=== PATIENT | male | born 1975 | race Caucasian/White ===

== ENCOUNTER 2017-03-12 16:11 | Emergency (ER) | payer SELFPAY ==
[~2017-03-12] VITALS: Ht 193 cm; Wt 136.0 kg
[2017-03-12] MEDS ORDERED: PRINIVIL20 M1 PO (16:33)
== END 2017-03-12 18:10 ==
LOC: EDMED 16:11
DX: S02.2XXA Fracture of nasal bones, initial encounter for closed fracture (principal); M25.512 Pain in left shoulder; R07.81 Pleurodynia; I10 Essential (primary) hypertension; Z79.899 Other long term (current) drug therapy; W18.09XA Striking against other object with subsequent fall, initial encounter; Y92.019 Unspecified place in single-family (private) house as the place of occurrence of the external cause